=== PATIENT | female | born 1960 | race Caucasian/White ===

== ENCOUNTER 2018-03-09 10:09 | Emergency (ER) | payer OTHER ==
[2018-03-09 13:03] LABS: URINE BLOOD (Dip) POC 2+ (NEGATIVE); URINE GLUCOSE (Dip) POC Negative (NEGATIVE); URINE KETONES (Dip) POC Negative (NEGATIVE); URINE LEUKOCYTE EST (Dip) POC 2+ (NEGATIVE); URINE NITRITE (Dip) POC Negative (NEGATIVE); URINE TOTAL PROTEIN POC Negative (NEGATIVE)
== END 2018-03-09 13:55 | disposition home or self-care (01) ==
LOC: FTE 10:09
DX: N30.00 Acute cystitis without hematuria (principal); N72 Inflammatory disease of cervix uteri
CPT/HCPCS: 76830; 76856; 81003; 99284-25